=== PATIENT | male | born 1990 | race Caucasian/White ===

== ENCOUNTER 2017-12-08 10:27 | Emergency (ER) | payer MEDICAID ==
[~2017-12-08] VITALS: Ht 167.6 cm; Wt 96.2 kg
[2017-12-08 10:31] VITALS: BP_SYST 123
[2017-12-08] MEDS ORDERED: KETOROLAC TROMETHAMINE 60 MG/2 ML VIAL IM ONE (10:45)
[2017-12-08 11:20] VITALS: BP_SYST 116
== END 2017-12-08 11:20 | disposition home or self-care (01) ==
LOC: SED 10:27
DX: S93.491A Sprain of other ligament of right ankle, initial encounter (principal); F17.210 Nicotine dependence, cigarettes, uncomplicated; W10.8XXA Fall (on) (from) other stairs and steps, initial encounter; Y93.89 Activity, other specified; Y92.89 Other specified places as the place of occurrence of the external cause; Y99.8 Other external cause status
CPT/HCPCS: 73590; 73610; 96372; 99284; J1885